=== PATIENT | female | born 1985 | race African-American/Black ===

== ENCOUNTER 2021-09-06 17:15 | Inpatient (IN) ==
[2021-09-06] MEDS ORDERED: SODIUM CHLORIDE 0.9% 1,000 ML IV STA ×2 (18:33→20:43)
[2021-09-06] MEDS ORDERED: ONDANSETRON 4 MG/2 ML VIAL IV STA (18:33)
[2021-09-06 18:50] LABS: Basophils % 0.2 % (0.0-0.8); Eosinophils # 0.1 10*3/uL (0.0-0.87); Eosinophils % 0.5 % (0.00-10.9); Hematocrit 26.3 VOL% (35.7-47.0); Hemoglobin 8.3 GM/DL (12.0-16.0); Immature Granulocytes % 2.8 %; Lymphocytes # 1.4 10*3/uL (1.4-4.0); Lymphocytes % 9.8 % (21.3-54.2); Mean Corpuscular HGB Conc 31.6 GM/DL (32-36); Mean Corpuscular Volume 95.3 FL (87-102); Mean Platelet Volume 11.7 FL (9.6-12.0); NRBC # 0.02 10*3/uL; Neutrophils % 79.7 % (38.7-73.9); Platelet Count 110 T/CUMM (130-400); Red Blood Count 2.76 MC/CUMM (3.8-5.5); Red Cell Distribution Width 14.2 % (9.3-17.3); White Blood Count 14.5 T/CUMM (4-12)
[2021-09-06 19:18] LABS: Albumin 2.2 G/DL (3.4-5.0); Bilirubin,Total 0.5 MG/DL (0.20-1.00); Osmolality,Calculated 320.1 MOS/KG (273-304); Potassium 5.2 MMOL/L (3.5-5.1); Total Protein 6.6 G/DL (6.4-8.2)
[2021-09-06] MEDS ORDERED: cefTRIAXone 1,000 MG in SODIUM CHLORIDE 0.9% 100 ML IV STA (19:38)
[2021-09-06 20:15] LABS: Lymphocytes 13 % (20-55); Metamyelocytes 1 %; Segmented Neutrophils 82 % (50-85); Total Cells Counted 100
[2021-09-06] MEDS: SODIUM CHLORIDE 0.45% 1,000 ML IV SCH (20:39)
[2021-09-06] MEDS ORDERED: GLUCAGON 1 MG VIAL IM PRN (20:40)
[2021-09-06] MEDS ORDERED: ONDANSETRON 4 MG/2 ML VIAL IV PRN (20:40)
[2021-09-06 20:45] LABS: INR 1.1; PT Patient Result 12.5 SECS (10.5-12.0); Partial Thromboplastin Time 31.4 SECS (23.8-32.1)
[2021-09-06] MEDS ORDERED: DEXTROSE 10% 250 ML BAG IV PRN (20:59)
[2021-09-06 23:51] LABS: Bacteria,Urine Occasional /HPF (Few); Bilirubin,Urine Negative (Negative); Blood, Urine Moderate mg/dL (Negative); Glucose,Urine (UA) Negative (Negative); Hyaline Casts,Urine 5 /LPF (0-3); Ketones,Urine 5 mg/dL (Negative); Mucus,Urine Occasional /LPF (Occasional); Nitrite,Urine Negative (Negative); Protein,Urine 30 MG/DL; RBC,Urine 1 /HPF (0-4); Squamous Epithelial Cell,Urine Moderate /HPF (0-10); Urine Appearance CLOUDY (Clear); Urine Color Amber (Yellow); Urine Specific Gravity 1.023 (1.001-1.035); Urine Urobilinogen < 2.0 EU/DL (<2.0)
[2021-09-07] MEDS: ACETAMINOPHEN 650 MG SUPP RECTAL PRN
[2021-09-07] MEDS: VALPROIC ACID INJ 1,000 MG in SODIUM CHLORIDE 0.9% 100 ML IV SCH ×2 (00:38→18:35)
[2021-09-07] MEDS: HEPARIN 5,000 UNIT/1 ML VIAL SUBCUT SCH ×3 (01:00→21:24)
[2021-09-07] MEDS: AZITHROMYCIN INJ 500 MG in SODIUM CHLORIDE 0.9% 250 ML IV SCH ×2 (01:23→21:25)
[2021-09-07 05:49] LABS: Basophils % 0.2 % (0.0-0.8); Eosinophils % 0.5 % (0.00-10.9); Hematocrit 24.1 VOL% (35.7-47.0); Hemoglobin 7.6 GM/DL (12.0-16.0); Immature Granulocytes % 5.1 %; Immature Granulocytes Absolute 0.44 #; Lymphocytes # 1.1 10*3/uL (1.4-4.0); Lymphocytes % 12.6 % (21.3-54.2); Mean Corpuscular HGB Conc 31.5 GM/DL (32-36); Mean Corpuscular Volume 95.6 FL (87-102); Mean Platelet Volume 11.2 FL (9.6-12.0); Monocytes % 5.2 % (1.7-12.7); Neutrophils % 76.4 % (38.7-73.9); Platelet Count 78 T/CUMM (130-400); Red Blood Count 2.52 MC/CUMM (3.8-5.5); Red Cell Distribution Width 14.3 % (9.3-17.3); White Blood Count 8.6 T/CUMM (4-12)
[2021-09-07 05:54] LABS: INR 1.2; PT Patient Result 13.1 SECS (10.5-12.0)
[2021-09-07 06:35] LABS: Anisocytosis 1+; Band Neutrophils 34 % (0-10); Burr Cells Few; Eosinophils 1 % (0-10); Lymphocytes 10 % (20-55); Platelet Estimate Decreased; Segmented Neutrophils 51 % (50-85); Total Cells Counted 100
[2021-09-07 06:36] LABS: Macrocytosis Slight
[2021-09-07 06:53] LABS: Albumin 1.7 G/DL (3.4-5.0); Bilirubin,Total 1.5 MG/DL (0.20-1.00); Calcium 7.2 MG/DL (8.5-10.1); Osmolality,Calculated 321.6 MOS/KG (273-304); Potassium 4.7 MMOL/L (3.5-5.1); Thyroid Stimulating Hormone 2.62 uIU/ml (0.358-3.74); Total Protein 5.5 G/DL (6.4-8.2)
[2021-09-07] MEDS: SODIUM CHLORIDE 0.45% 1,000 ML IV SCH (06:57)
[2021-09-07 07:49] LABS: Ferritin 667.4 ng/mL (8-252)
[2021-09-07] MEDS: VALPROIC ACID INJ 750 MG in SODIUM CHLORIDE 0.9% 100 ML IV SCH (09:40)
[2021-09-07] MEDS: SODIUM BICARB INJ 100 MEQ in DEXTROSE 5% NACL 0.22% 1,000 ML IV SCH ×2 (09:41→23:57)
[2021-09-07] MEDS: PANTOPRAZOLE 40 MG VIAL IV SCH (09:41)
[2021-09-07] MEDS: cefTRIAXone 1,000 MG in SODIUM CHLORIDE 0.9% 100 ML IV SCH (21:24)
[2021-09-08 08:57] LABS: Basophils % 0.2 % (0.0-0.8); Eosinophils # 0.1 10*3/uL (0.0-0.87); Eosinophils % 0.5 % (0.00-10.9); Hemoglobin 7.7 GM/DL (12.0-16.0); Immature Granulocytes % 11.5 %; Immature Granulocytes Absolute 1.26 #; Lymphocytes % 8.8 % (21.3-54.2); Mean Corpuscular HGB Conc 32.1 GM/DL (32-36); Mean Corpuscular Volume 92.3 FL (87-102); Monocytes % 6.5 % (1.7-12.7); NRBC # 0.02 10*3/uL; Neutrophils % 72.5 % (38.7-73.9); Platelet Count 126 T/CUMM (130-400); White Blood Count 10.9 T/CUMM (4-12)
[2021-09-08] MEDS ORDERED: amLODIPine 5 MG TABLET PO SCH (09:00)
[2021-09-08] MEDS ORDERED: carvediloL 25 MG TABLET PO SCH (09:00)
[2021-09-08] MEDS: VALPROIC ACID INJ 750 MG in SODIUM CHLORIDE 0.9% 100 ML IV SCH (09:06)
[2021-09-08] MEDS: HEPARIN 5,000 UNIT/1 ML VIAL SUBCUT SCH ×2 (09:06→21:40)
[2021-09-08] MEDS: PANTOPRAZOLE 40 MG VIAL IV SCH (09:06)
[2021-09-08 09:19] LABS: Calcium 7.6 MG/DL (8.5-10.1); Osmolality,Calculated 324.7 MOS/KG (273-304); Potassium 3.9 MMOL/L (3.5-5.1)
[2021-09-08 09:32] LABS: Anisocytosis 1+; Band Neutrophils 27 % (0-10); Eosinophils 1 % (0-10); Lymphocytes 11 % (20-55); Metamyelocytes 2 %; Myelocytes 2 %; Platelet Estimate Adequate; Segmented Neutrophils 53 % (50-85); Total Cells Counted 100
[2021-09-08 09:33] LABS: Hypochromia 1+; Target Cells 1+
[2021-09-08] MEDS: sulfaSALAzine 500 MG TABLET PO SCH ×2 (10:04→21:40)
[2021-09-08] MEDS: carBAMazepine CHEW 100 MG TABLET PO SCH ×2 (10:04→16:35)
[2021-09-08] MEDS: HydrOXYzine PAMOATE 25 MG CAPSULE PO SCH ×2 (10:05→21:40)
[2021-09-08] MEDS: SODIUM CHLORIDE 0.45% 1,000 ML IV SCH ×2 (13:08→23:40)
[2021-09-08] MEDS: SODIUM BICARB INJ 100 MEQ in DEXTROSE 5% NACL 0.22% 1,000 ML IV SCH (13:08)
[2021-09-08] MEDS: VALPROIC ACID INJ 1,000 MG in SODIUM CHLORIDE 0.9% 100 ML IV SCH (18:20)
[2021-09-08] MEDS: MIRTAZAPINE 15 MG TABLET PO SCH (21:40)
[2021-09-08] MEDS: risperiDONE 1 MG TABLET PO SCH (21:40)
[2021-09-08] MEDS: cefTRIAXone 1,000 MG in SODIUM CHLORIDE 0.9% 100 ML IV SCH (21:53)
[2021-09-08] MEDS: AZITHROMYCIN INJ 500 MG in SODIUM CHLORIDE 0.9% 250 ML IV SCH (23:30)
[2021-09-08] MEDS: ACETAMINOPHEN 650 MG SUPP RECTAL PRN (23:53)
[2021-09-09 04:55] LABS: Basophils # 0.1 10*3/uL (0.0-0.2); Basophils % 0.7 % (0.0-0.8); Eosinophils # 0.1 10*3/uL (0.0-0.87); Eosinophils % 0.8 % (0.00-10.9); Hematocrit 22.6 VOL% (35.7-47.0); Hemoglobin 7.7 GM/DL (12.0-16.0); Immature Granulocytes % 18.8 %; Immature Granulocytes Absolute 2.46 #; Lymphocytes # 1.5 10*3/uL (1.4-4.0); Lymphocytes % 11.7 % (21.3-54.2); Mean Corpuscular HGB Conc 34.1 GM/DL (32-36); Mean Corpuscular Volume 95.8 FL (87-102); Mean Platelet Volume 11.2 FL (9.6-12.0); Monocytes % 7.9 % (1.7-12.7); NRBC # 0.02 10*3/uL; Neutrophils % 60.1 % (38.7-73.9); Platelet Count 167 T/CUMM (130-400); Red Blood Count 2.36 MC/CUMM (3.8-5.5); White Blood Count 13.1 T/CUMM (4-12)
[2021-09-09 05:19] LABS: Band Neutrophils 4 % (0-10); Eosinophils 2 % (0-10); Hypochromia 1+; Lymphocytes 10 % (20-55); Metamyelocytes 1 %; Myelocytes 4 %; Promyelocytes 1 %; Segmented Neutrophils 72 % (50-85); Target Cells Few; Total Cells Counted 100
[2021-09-09 05:20] LABS: Microcytosis Slight; Platelet Estimate Adequate
[2021-09-09 05:21] LABS: Calcium 7.3 MG/DL (8.5-10.1); Osmolality,Calculated 309.1 MOS/KG (273-304); Potassium 3.6 MMOL/L (3.5-5.1)
[2021-09-09] MEDS: sulfaSALAzine 500 MG TABLET PO SCH ×2 (09:45→22:03)
[2021-09-09] MEDS: carvediloL 6.25 MG TABLET PO SCH ×2 (09:46→21:50)
[2021-09-09] MEDS: PANTOPRAZOLE 40 MG VIAL IV SCH (09:46)
[2021-09-09] MEDS: amLODIPine 5 MG TABLET PO SCH (09:46)
[2021-09-09] MEDS: HEPARIN 5,000 UNIT/1 ML VIAL SUBCUT SCH ×2 (09:46→22:03)
[2021-09-09] MEDS: carBAMazepine 200 MG TABLET PO SCH ×3 (09:46→21:50)
[2021-09-09] MEDS: VALPROIC ACID INJ 750 MG in SODIUM CHLORIDE 0.9% 100 ML IV SCH (09:46)
[2021-09-09] MEDS: risperiDONE 1 MG TABLET PO SCH ×2 (09:46→21:49)
[2021-09-09] MEDS: HydrOXYzine PAMOATE 25 MG CAPSULE PO SCH ×2 (09:47→22:03)
[2021-09-09] MEDS: DESITIN 4OZ/NYSTATIN 15 GRAM MIXTURE PASTE TOP SCH ×2 (15:16→21:51)
[2021-09-09 15:24] LABS: % Iron Saturation 67.6 % (18-50)
[2021-09-09 15:31] LABS: Folate 18.26 NG/ML (5.38-24.0); Vitamin B12 > 2000 PG/ML (211-911)
[2021-09-09] MEDS: MEGESTROL 400 MG/10 ML UDCUP PO SCH (18:30)
[2021-09-09] MEDS: VALPROIC ACID INJ 1,000 MG in SODIUM CHLORIDE 0.9% 100 ML IV SCH (21:48)
[2021-09-09] MEDS: MIRTAZAPINE 15 MG TABLET PO SCH (21:49)
[2021-09-10] MEDS ORDERED: LORazepam 2 MG/1 ML VIAL IV PRN (00:03)
[2021-09-10] MEDS: cefTRIAXone 1,000 MG in SODIUM CHLORIDE 0.9% 100 ML IV SCH (00:16)
[2021-09-10] MEDS: AZITHROMYCIN INJ 500 MG in SODIUM CHLORIDE 0.9% 250 ML IV SCH (02:25)
[2021-09-10] MEDS: SODIUM CHLORIDE 0.45% 1,000 ML IV SCH ×3 (02:29→15:00)
[2021-09-10 05:52] LABS: Basophils # 0.1 10*3/uL (0.0-0.2); Basophils % 0.7 % (0.0-0.8); Eosinophils # 0.1 10*3/uL (0.0-0.87); Hemoglobin 7.3 GM/DL (12.0-16.0); Immature Granulocytes % 24.6 %; Immature Granulocytes Absolute 2.61 #; Lymphocytes # 1.8 10*3/uL (1.4-4.0); Lymphocytes % 16.6 % (21.3-54.2); Mean Corpuscular HGB Conc 36.5 GM/DL (32-36); Mean Corpuscular Volume 95.7 FL (87-102); Mean Platelet Volume 12.8 FL (9.6-12.0); Monocytes % 8.1 % (1.7-12.7); Platelet Count 114 T/CUMM (130-400); Red Blood Count 2.09 MC/CUMM (3.8-5.5); Red Cell Distribution Width 15.3 % (9.3-17.3); White Blood Count 10.6 T/CUMM (4-12)
[2021-09-10 06:06] LABS: Albumin 1.4 G/DL (3.4-5.0); Osmolality,Calculated 302.3 MOS/KG (273-304); Potassium 3.3 MMOL/L (3.5-5.1); Total Protein 5.4 G/DL (6.4-8.2)
[2021-09-10 06:07] LABS: Band Neutrophils 9 % (0-10); Eosinophils 1 % (0-10); Lymphocytes 14 % (20-55); Platelet Estimate Decreased; Segmented Neutrophils 71 % (50-85); Total Cells Counted 100
[2021-09-10 06:08] LABS: Hypochromia 1+; Microcytosis 1+
[2021-09-10] MEDS: VALPROIC ACID INJ 750 MG in SODIUM CHLORIDE 0.9% 100 ML IV SCH (10:40)
[2021-09-10] MEDS: sulfaSALAzine 500 MG TABLET PO SCH ×2 (10:40→22:25)
[2021-09-10] MEDS: carvediloL 6.25 MG TABLET PO SCH ×2 (10:40→22:25)
[2021-09-10] MEDS: DESITIN 4OZ/NYSTATIN 15 GRAM MIXTURE PASTE TOP SCH ×2 (10:41→22:27)
[2021-09-10] MEDS: HEPARIN 5,000 UNIT/1 ML VIAL SUBCUT SCH ×2 (10:41→22:27)
[2021-09-10] MEDS: HydrOXYzine PAMOATE 25 MG CAPSULE PO SCH ×2 (10:41→22:25)
[2021-09-10] MEDS: risperiDONE 1 MG TABLET PO SCH ×2 (10:41→22:24)
[2021-09-10] MEDS: MEGESTROL 400 MG/10 ML UDCUP PO SCH (10:41)
[2021-09-10] MEDS: PANTOPRAZOLE 40 MG VIAL IV SCH (10:41)
[2021-09-10] MEDS: carBAMazepine 200 MG TABLET PO SCH ×3 (10:41→22:25)
[2021-09-10] MEDS: amLODIPine 5 MG TABLET PO SCH (10:41)
[2021-09-10] MEDS: ASCORBIC ACID 500 MG TABLET PO SCH (10:41)
[2021-09-10] MEDS: ZINC SULFATE 220 MG CAPSULE PO SCH (10:42)
[2021-09-10] MEDS: CHOLECALCIFEROL 400 UNIT TABLET PO SCH (10:42)
[2021-09-10] MEDS ORDERED: VANCOMYCIN INJ 1,000 MG in SODIUM CHLORIDE 0.9% 250 ML IV SCH (14:00)
[2021-09-10] MEDS: DEXAMETHASONE 4 MG TABLET PO SCH (14:59)
[2021-09-10] MEDS ORDERED: POTASSIUM CHLORIDE 20 MEQ TABLET PO ONE (15:00)
[2021-09-10] MEDS: MIRTAZAPINE 15 MG TABLET PO SCH (22:24)
[2021-09-10] MEDS: VALPROIC ACID INJ 1,000 MG in SODIUM CHLORIDE 0.9% 100 ML IV SCH (22:27)
[2021-09-11] MEDS: cefTRIAXone 1,000 MG in SODIUM CHLORIDE 0.9% 100 ML IV SCH (02:11)
[2021-09-11] MEDS: AZITHROMYCIN INJ 500 MG in SODIUM CHLORIDE 0.9% 250 ML IV SCH (02:54)
[2021-09-11 05:16] LABS: Basophils # 0.1 10*3/uL (0.0-0.2); Basophils % 0.4 % (0.0-0.8); Eosinophils # 0.1 10*3/uL (0.0-0.87); Eosinophils % 0.7 % (0.00-10.9); Hematocrit 20.3 VOL% (35.7-47.0); Hemoglobin 6.7 GM/DL (12.0-16.0); Immature Granulocytes % 22.9 %; Lymphocytes # 2.5 10*3/uL (1.4-4.0); Lymphocytes % 19.7 % (21.3-54.2); Mean Platelet Volume 10.5 FL (9.6-12.0); Monocytes % 6.5 % (1.7-12.7); NRBC # 0.05 10*3/uL; Neutrophils % 49.8 % (38.7-73.9); Platelet Count 196 T/CUMM (130-400); Red Blood Count 2.16 MC/CUMM (3.8-5.5); Red Cell Distribution Width 14.2 % (9.3-17.3); White Blood Count 12.7 T/CUMM (4-12)
[2021-09-11 05:45] LABS: Band Neutrophils 7 % (0-10); Eosinophils 3 % (0-10); Hypochromia 1+; Lymphocytes 22 % (20-55); Metamyelocytes 5 %; Myelocytes 2 %; Nucleated Red Blood Cells 1 (0-5); Segmented Neutrophils 57 % (50-85); Total Cells Counted 100
[2021-09-11 05:46] LABS: Microcytosis 1+; Platelet Estimate Adequate
[2021-09-11 05:48] LABS: Calcium 7.1 MG/DL (8.5-10.1); Osmolality,Calculated 296.3 MOS/KG (273-304); Potassium 2.8 MMOL/L (3.5-5.1)
[2021-09-11] MEDS: MEGESTROL 400 MG/10 ML UDCUP PO SCH (09:30)
[2021-09-11] MEDS: carBAMazepine 200 MG TABLET PO SCH ×3 (09:30→21:48)
[2021-09-11] MEDS: risperiDONE 1 MG TABLET PO SCH ×2 (09:30→21:47)
[2021-09-11] MEDS: HydrOXYzine PAMOATE 25 MG CAPSULE PO SCH ×2 (09:30→21:47)
[2021-09-11] MEDS: sulfaSALAzine 500 MG TABLET PO SCH ×2 (09:30→21:48)
[2021-09-11] MEDS: HEPARIN 5,000 UNIT/1 ML VIAL SUBCUT SCH (09:30)
[2021-09-11] MEDS: carvediloL 6.25 MG TABLET PO SCH ×2 (09:30→21:47)
[2021-09-11] MEDS: amLODIPine 5 MG TABLET PO SCH (09:30)
[2021-09-11] MEDS: PANTOPRAZOLE 40 MG VIAL IV SCH (09:30)
[2021-09-11] MEDS: DEXAMETHASONE 4 MG TABLET PO SCH (09:30)
[2021-09-11] MEDS ORDERED: POTASSIUM CHLORIDE 20 MEQ TABLET PO ONE (10:30)
[2021-09-11] MEDS ORDERED: MAGNESIUM SULF RIDER 4 GM/100 ML PREMIX IV ONE (10:30)
[2021-09-11] MEDS: VALPROIC ACID INJ 750 MG in SODIUM CHLORIDE 0.9% 100 ML IV SCH (10:46)
[2021-09-11] MEDS: ASCORBIC ACID 500 MG TABLET PO SCH (10:47)
[2021-09-11] MEDS: CHOLECALCIFEROL 400 UNIT TABLET PO SCH (10:47)
[2021-09-11] MEDS: DESITIN 4OZ/NYSTATIN 15 GRAM MIXTURE PASTE TOP SCH ×2 (10:47→21:48)
[2021-09-11] MEDS: ZINC SULFATE 220 MG CAPSULE PO SCH (10:47)
[2021-09-11] MEDS ORDERED: SODIUM CHLORIDE 0.9% 1,000 ML IV PRN (14:39)
[2021-09-11] MEDS: VALPROIC ACID INJ 1,000 MG in SODIUM CHLORIDE 0.9% 100 ML IV SCH (18:32)
[2021-09-11] MEDS: MIRTAZAPINE 15 MG TABLET PO SCH (21:47)
[2021-09-12] MEDS: cefTRIAXone 1,000 MG in SODIUM CHLORIDE 0.9% 100 ML IV SCH (00:04)
[2021-09-12] MEDS: AZITHROMYCIN INJ 500 MG in SODIUM CHLORIDE 0.9% 250 ML IV SCH (04:24)
[2021-09-12] MEDS: carvediloL 6.25 MG TABLET PO SCH ×2 (10:36→21:33)
[2021-09-12] MEDS: DEXAMETHASONE 4 MG TABLET PO SCH (10:36)
[2021-09-12] MEDS: sulfaSALAzine 500 MG TABLET PO SCH ×2 (10:36→21:34)
[2021-09-12] MEDS: VALPROIC ACID INJ 750 MG in SODIUM CHLORIDE 0.9% 100 ML IV SCH (10:36)
[2021-09-12] MEDS: risperiDONE 1 MG TABLET PO SCH ×2 (10:37→21:34)
[2021-09-12] MEDS: CHOLECALCIFEROL 400 UNIT TABLET PO SCH (10:37)
[2021-09-12] MEDS: DESITIN 4OZ/NYSTATIN 15 GRAM MIXTURE PASTE TOP SCH ×2 (10:37→21:33)
[2021-09-12] MEDS: carBAMazepine 200 MG TABLET PO SCH ×3 (10:37→21:34)
[2021-09-12] MEDS: MEGESTROL 400 MG/10 ML UDCUP PO SCH (10:37)
[2021-09-12] MEDS: amLODIPine 5 MG TABLET PO SCH (10:37)
[2021-09-12] MEDS: ASCORBIC ACID 500 MG TABLET PO SCH (10:37)
[2021-09-12] MEDS: HydrOXYzine PAMOATE 25 MG CAPSULE PO SCH ×2 (10:37→21:34)
[2021-09-12] MEDS: PANTOPRAZOLE 40 MG VIAL IV SCH (10:37)
[2021-09-12] MEDS: ZINC SULFATE 220 MG CAPSULE PO SCH (10:38)
[2021-09-12] MEDS: VALPROIC ACID INJ 1,000 MG in SODIUM CHLORIDE 0.9% 100 ML IV SCH (17:59)
[2021-09-12] MEDS: MIRTAZAPINE 15 MG TABLET PO SCH (21:34)
[2021-09-13] MEDS: cefTRIAXone 1,000 MG in SODIUM CHLORIDE 0.9% 100 ML IV SCH (00:36)
[2021-09-13] MEDS: AZITHROMYCIN INJ 500 MG in SODIUM CHLORIDE 0.9% 250 ML IV SCH (01:45)
[2021-09-13 06:33] LABS: Basophils % 0.3 % (0.0-0.8); Eosinophils # 0.1 10*3/uL (0.0-0.87); Eosinophils % 0.7 % (0.00-10.9); Hematocrit 29.4 VOL% (35.7-47.0); Immature Granulocytes % 9.8 %; Immature Granulocytes Absolute 1.35 #; Lymphocytes # 2.7 10*3/uL (1.4-4.0); Lymphocytes % 19.8 % (21.3-54.2); Mean Corpuscular Volume 91.6 FL (87-102); Mean Platelet Volume 10.3 FL (9.6-12.0); Monocytes % 6.3 % (1.7-12.7); NRBC # 0.05 10*3/uL; Neutrophils % 63.1 % (38.7-73.9); Platelet Count 203 T/CUMM (130-400); Red Cell Distribution Width 14.2 % (9.3-17.3); White Blood Count 13.8 T/CUMM (4-12)
[2021-09-13 07:02] LABS: Osmolality,Calculated 282.1 MOS/KG (273-304); Potassium 3.1 MMOL/L (3.5-5.1)
[2021-09-13 07:07] LABS: Hemoglobin 9.7 GM/DL (12.0-16.0); Red Blood Count 3.21 MC/CUMM (3.8-5.5)
[2021-09-13 07:11] LABS: Band Neutrophils 3 % (0-10); Lymphocytes 18 % (20-55); Nucleated Red Blood Cells 1 (0-5); Platelet Estimate Normal; Segmented Neutrophils 73 % (50-85); Total Cells Counted 100
[2021-09-13 07:12] LABS: Hypochromia Slight
[2021-09-13] MEDS ORDERED: POTASSIUM CHLORIDE 20 MEQ TABLET PO ONE (10:30)
[2021-09-13] MEDS: MEGESTROL 400 MG/10 ML UDCUP PO SCH (10:45)
[2021-09-13] MEDS: risperiDONE 1 MG TABLET PO SCH ×2 (10:45→20:47)
[2021-09-13] MEDS: carBAMazepine 200 MG TABLET PO SCH ×3 (10:45→20:47)
[2021-09-13] MEDS: DEXAMETHASONE 4 MG TABLET PO SCH (10:46)
[2021-09-13] MEDS: ASCORBIC ACID 500 MG TABLET PO SCH (10:46)
[2021-09-13] MEDS: CHOLECALCIFEROL 400 UNIT TABLET PO SCH (10:46)
[2021-09-13] MEDS: HydrOXYzine PAMOATE 25 MG CAPSULE PO SCH ×2 (10:47→20:48)
[2021-09-13] MEDS: amLODIPine 5 MG TABLET PO SCH (10:47)
[2021-09-13] MEDS: PANTOPRAZOLE 40 MG VIAL IV SCH (10:47)
[2021-09-13] MEDS: DESITIN 4OZ/NYSTATIN 15 GRAM MIXTURE PASTE TOP SCH ×2 (10:47→20:48)
[2021-09-13] MEDS: carvediloL 6.25 MG TABLET PO SCH ×2 (10:47→20:48)
[2021-09-13] MEDS: ZINC SULFATE 220 MG CAPSULE PO SCH (10:47)
[2021-09-13] MEDS: sulfaSALAzine 500 MG TABLET PO SCH ×2 (10:47→20:48)
[2021-09-13] MEDS: VALPROIC ACID INJ 750 MG in SODIUM CHLORIDE 0.9% 100 ML IV SCH (10:48)
[2021-09-13] MEDS ORDERED: MAGNESIUM SULF RIDER 2 GM/50 ML PREMIX IV ONE (15:00)
[2021-09-13] MEDS: MIRTAZAPINE 15 MG TABLET PO SCH (20:48)
[2021-09-13] MEDS ORDERED: DIVALPROEX ER 250 MG TABLET PO SCH (21:00)
[2021-09-14 06:40] LABS: Basophils % 0.3 % (0.0-0.8); Eosinophils # 0.1 10*3/uL (0.0-0.87); Eosinophils % 0.7 % (0.00-10.9); Hematocrit 31.3 VOL% (35.7-47.0); Hemoglobin 10.1 GM/DL (12.0-16.0); Immature Granulocytes % 5.2 %; Lymphocytes # 2.5 10*3/uL (1.4-4.0); Lymphocytes % 21.9 % (21.3-54.2); Mean Corpuscular HGB Conc 32.3 GM/DL (32-36); Mean Corpuscular Volume 93.4 FL (87-102); Mean Platelet Volume 10.3 FL (9.6-12.0); Monocytes % 7.6 % (1.7-12.7); NRBC # 0.03 10*3/uL; Neutrophils % 64.3 % (38.7-73.9); Platelet Count 197 T/CUMM (130-400); Red Blood Count 3.35 MC/CUMM (3.8-5.5); Red Cell Distribution Width 14.3 % (9.3-17.3); White Blood Count 11.5 T/CUMM (4-12)
[2021-09-14 07:03] LABS: Calcium 7.2 MG/DL (8.5-10.1); Osmolality,Calculated 288.7 MOS/KG (273-304); Potassium 3.8 MMOL/L (3.5-5.1)
[2021-09-14 07:05] LABS: Lymphocytes 29 % (20-55); Myelocytes 1 %; Platelet Estimate Normal; Segmented Neutrophils 68 % (50-85); Total Cells Counted 100
[2021-09-14] MEDS ORDERED: DIVALPROEX ER 250 MG TABLET PO SCH (09:00)
[2021-09-14] MEDS: sulfaSALAzine 500 MG TABLET PO SCH (10:51)
[2021-09-14] MEDS: risperiDONE 1 MG TABLET PO SCH (10:51)
[2021-09-14] MEDS: ASCORBIC ACID 500 MG TABLET PO SCH (10:51)
[2021-09-14] MEDS: HydrOXYzine PAMOATE 25 MG CAPSULE PO SCH (10:51)
[2021-09-14] MEDS: carBAMazepine 200 MG TABLET PO SCH (10:52)
[2021-09-14] MEDS: amLODIPine 5 MG TABLET PO SCH (10:52)
[2021-09-14] MEDS: DEXAMETHASONE 4 MG TABLET PO SCH (10:52)
[2021-09-14] MEDS: ZINC SULFATE 220 MG CAPSULE PO SCH (10:53)
[2021-09-14] MEDS: CHOLECALCIFEROL 400 UNIT TABLET PO SCH (10:53)
[2021-09-14] MEDS: carvediloL 6.25 MG TABLET PO SCH (10:53)
[2021-09-14] MEDS: PANTOPRAZOLE 40 MG VIAL IV SCH (10:54)
[2021-09-14] MEDS: MEGESTROL 400 MG/10 ML UDCUP PO SCH (10:54)
[2021-09-14] MEDS: DESITIN 4OZ/NYSTATIN 15 GRAM MIXTURE PASTE TOP SCH (11:10)
[2021-09-14 13:00] VITALS: BP 132/100
== END 2021-09-14 14:50 | disposition home health service (06) | DRG 137 ==
LOC: EDBD → EDUNIT# → N.ED 17:15 → N.3E 20:40 → SUATTDRO 20:40 → N.3E 21:54
PROVIDERS: ADMIT Internal Medicine; ATTEND Internal Medicine

== ENCOUNTER 2022-05-27 21:12 | Inpatient (IN) ==
[2022-05-27] MEDS ORDERED: SODIUM CHLORIDE 0.9% 1,000 ML IV STA (21:15)
[2022-05-27] MEDS: NOREPINEPHRINE 8 MG in SODIUM CHLORIDE 0.9% 242 ML IV PRN (21:26)
[2022-05-27] MEDS ORDERED: EPINEPHrine 1 MG/10 ML SYRINGE ONE (21:31)
[2022-05-27] MEDS ORDERED: EPINEPHrine 1 MG/ML VIAL ONE (21:35)
[2022-05-27 21:39] LABS: Basophils % 0.1 % (0.0-0.8); Eosinophils # 0.2 10*3/uL (0.0-0.87); Eosinophils % 2.4 % (0.00-10.9); Hemoglobin 8.2 GM/DL (12.0-16.0); Immature Granulocytes % 1.9 %; Immature Granulocytes Absolute 0.13 #; Lymphocytes # 3.2 10*3/uL (1.4-4.0); Mean Corpuscular HGB Conc 30.4 GM/DL (32-36); Mean Corpuscular Volume 102.3 FL (87-102); Monocytes # 0.2 10*3/uL (0.11-0.8); Monocytes % 3.6 % (1.7-12.7); NRBC # 0.02 10*3/uL; Platelet Count 207 T/CUMM (130-400); Red Blood Count 2.64 MC/CUMM (3.8-5.5); Red Cell Distribution Width 13.2 % (9.3-17.3); White Blood Count 6.7 T/CUMM (4-12)
[2022-05-27 21:49] LABS: Arterial PCO2 iSTAT > 130 MM HG (35-48); Arterial PO2 iSTAT 92 MM HG (80-95); Arterial pH iSTAT 6.776 (7.35-7.45)
[2022-05-27 21:57] LABS: Alanine Aminotransferase 238 U/L (13-56); Albumin 1.7 G/DL (3.4-5.0); Alkaline Phosphatase 109 U/L (45-117); Aspartate Amino Transferase 343 U/L (0-37); Bilirubin,Total < 0.39 MG/DL (0.20-1.00); Blood Urea Nitrogen 34 MG/DL (7-18); Calcium 11.3 MG/DL (8.5-10.1); Carbon Dioxide 24 MMOL/L (21-32); Chloride 96 MMOL/L (98-107); Glucose 498 MG/DL (74-106); Osmolality,Calculated 306.5 MOS/KG (273-304); Potassium 4.1 MMOL/L (3.5-5.1); Sodium 139 MMOL/L (136-145); Total Protein 5.2 G/DL (6.4-8.2)
[2022-05-27 22:13] LABS: Bilirubin,Urine Negative (Negative); Blood, Urine Negative (Negative); Glucose,Urine (UA) Negative (Negative); Ketones,Urine Negative (Negative); Nitrite,Urine Negative (Negative); Protein,Urine Negative (Negative); Urine Appearance Clear (Clear); Urine Color Yellow (Yellow); Urine Urobilinogen 0.2 eU/dL (<2.0); Urine pH 5.5 (4.5-8.0)
[2022-05-27 22:15] LABS: Bacteria,Urine Occasional /HPF (Few); RBC,Urine 2 /HPF (0-4); Squamous Epithelial Cell,Urine Occasional /HPF (0-10)
[2022-05-27 22:16] LABS: PT Patient Result 11.4 SECS (10.1-12.1)
[2022-05-27] MEDS ORDERED: PIPERACILLIN/TAZOBACTAM 3,375 MG in SODIUM CHLORIDE 0.9% 100 ML IV STA (22:16)
[2022-05-27] MEDS ORDERED: VANCOMYCIN INJ 1,000 MG in SODIUM CHLORIDE 0.9% 250 ML IV STA (22:16)
[2022-05-27 22:26] LABS: Barbiturates Screen,Urine Negative (Negative); Benzodiazepines Screen,Urine Negative (Negative); Cannabinoid Screen,Urine Negative (Negative); Opiate Screen,Urine Negative (Negative); Phencyclidine Screen,Urine Negative (Negative)
[2022-05-27] MEDS ORDERED: SODIUM BICARB INJ 150 MEQ in STERILE WATER INJ 850 ML IV SCH (22:30)
[2022-05-27] MEDS: PHENYLEPHRINE DRIP 40 MG/250 ML PREMIX IV PRN (23:22)
[2022-05-28] MEDS ORDERED: NOREPINEPHRINE 4 MG/4 ML VIAL IV ONE (00:09)
[2022-05-28] MEDS: NOREPINEPHRINE 8 MG in SODIUM CHLORIDE 0.9% 242 ML IV PRN (00:11)
[2022-05-28] MEDS ORDERED: EPINEPHrine 1 MG/ML VIAL ONE (00:12)
[2022-05-28] MEDS: PHENYLEPHRINE DRIP 40 MG/250 ML PREMIX IV PRN (00:20)
[2022-05-28] MEDS ORDERED: ACETAMINOPHEN 325 MG TABLET PO PRN (00:43)
[2022-05-28] MEDS ORDERED: ALBUTEROL 2.5 MG/3 ML NEB RESP TX PRN (00:43)
[2022-05-28] MEDS ORDERED: ONDANSETRON 4 MG/2 ML VIAL IV PRN (00:43)
[2022-05-28 00:59] LABS: Arterial Base Excess iSTAT -9 MMOL/L (-2.5-2.5); Arterial Bicarbonate iSTAT 22.3 MMOL/L (20-26); Arterial O2 Saturation iSTAT 80 % (95-100); Arterial PCO2 iSTAT 83 MM HG (35-48); Arterial PO2 iSTAT 65 MM HG (80-95); Arterial Total CO2 iSTAT 25 MMO/L (23-27); Arterial pH iSTAT 7.038 (7.35-7.45)
[2022-05-28 01:56] VITALS: BP 53/25
[2022-05-28] MEDS ORDERED: PHENYLEPHRINE INJ 160 MG in SODIUM CHLORIDE 0.9% 234 ML IV PRN (01:58)
[2022-05-28] MEDS ORDERED: ALBUTEROL/IPRATROPIUM 3 ML NEB RESP TX ONE ×2 (02:09→07:33)
[2022-05-28] MEDS ORDERED: VALPROIC ACID INJ 500 MG in SODIUM CHLORIDE 0.9% 100 ML IV SCH (02:30)
[2022-05-28] MEDS: ALBUTEROL/IPRATROPIUM 3 ML NEB RESP TX SCH ×2 (02:47→07:14)
[2022-05-28] MEDS: NOREPINEPHRINE 16 MG in SODIUM CHLORIDE 0.9% 234 ML IV PRN ×2 (03:09→08:01)
[2022-05-28 04:43] LABS: ABG Base Excess -13.3 MMOL/L (-2.5-2.5); ABG HCO3 13.8 MMOL/L (20-26); ABG Oxygen Saturation 71.7 % (95-100); ABG PCO2 65.9 MM HG (35-48); ABG PO2 56.9 MM HG (80-95); ABG TCO2 17.6 MMOL/L (23-27)
[2022-05-28 04:46] LABS: ABG PH 7.047 (7.35-7.45)
[2022-05-28 05:01] LABS: Alanine Aminotransferase 222 U/L (13-56); Albumin 1.3 G/DL (3.4-5.0); Alkaline Phosphatase 117 U/L (45-117); Aspartate Amino Transferase 483 U/L (0-37); Bilirubin,Total < 0.39 MG/DL (0.20-1.00); Blood Urea Nitrogen 36 MG/DL (7-18); Calcium 7.1 MG/DL (8.5-10.1); Carbon Dioxide 19 MMOL/L (21-32); Chloride 113 MMOL/L (98-107); Glucose 202 MG/DL (74-106); Osmolality,Calculated 305.4 MOS/KG (273-304); Potassium 3.4 MMOL/L (3.5-5.1); Sodium 147 MMOL/L (136-145); Total Protein 3.9 G/DL (6.4-8.2)
[2022-05-28 05:18] LABS: Basophils % 0.5 % (0.0-0.8); Eosinophils % 1.1 % (0.00-10.9); Hematocrit 32.8 VOL% (35.7-47.0); Hemoglobin 9.8 GM/DL (12.0-16.0); Immature Granulocytes % 1.6 %; Immature Granulocytes Absolute 0.03 #; Lymphocytes % 52.7 % (21.3-54.2); Mean Corpuscular HGB Conc 29.9 GM/DL (32-36); Mean Corpuscular Volume 102.8 FL (87-102); Mean Platelet Volume 9.2 FL (9.6-12.0); Monocytes # 0.1 10*3/uL (0.11-0.8); Monocytes % 4.9 % (1.7-12.7); NRBC # 0.03 10*3/uL; Neutrophils % 39.2 % (38.7-73.9); Platelet Count 228 T/CUMM (130-400); Red Blood Count 3.19 MC/CUMM (3.8-5.5); Red Cell Distribution Width 13.3 % (9.3-17.3); White Blood Count 1.8 T/CUMM (4-12)
[2022-05-28 05:25] LABS: Eosinophils 4 % (0-10); Lymphocytes 65 % (20-55); Nucleated Red Blood Cells 1 /100 WBC (0-5); Total Cells Counted 100
[2022-05-28] MEDS ORDERED: SODIUM BICARBONATE 50 MEQ/50 ML VIAL IV ONE ×2 (05:25→06:01)
[2022-05-28 05:26] LABS: Atypical Lymphocytes Few; Platelet Estimate Adequate
[2022-05-28] MEDS ORDERED: INSULIN LISPRO 100 UNIT/ML SUBCUT SCH (06:00)
[2022-05-28] MEDS ORDERED: PIPERACILLIN/TAZOBACTAM 3,375 MG in SODIUM CHLORIDE 0.9% 100 ML IV SCH (06:00)
[2022-05-28] MEDS ORDERED: SODIUM BICARB INJ 150 MEQ in STERILE WATER INJ 1,000 ML IV SCH (08:30)
[2022-05-28] MEDS ORDERED: MORPHINE 2 MG/1 ML SYRINGE IV PRN (08:56)
[2022-05-28] MEDS ORDERED: MORPHINE 2 MG/1 ML SYRINGE IV ONE (08:56)
[2022-05-28] MEDS ORDERED: MORPHINE 2 MG/1 ML SYRINGE ONE (08:58)
[2022-05-28] MEDS ORDERED: HEPARIN 5,000 UNIT/1 ML VIAL SUBCUT SCH (09:00)
[2022-05-28] MEDS ORDERED: PANTOPRAZOLE 40 MG VIAL IV SCH (09:00)
[2022-05-28] MEDS ORDERED: VANCOMYCIN INJ 750 MG in SODIUM CHLORIDE 0.9% 250 ML IV SCH (22:00)
== END 2022-05-28 09:55 | disposition expired | DRG 133 ==
LOC: N.ED 21:12 → N.ICU 23:17
PROVIDERS: ADMIT Family Medicine; ATTEND Family Medicine